=== PATIENT | female | born 1965 | race American Indian/Alaskan Native ===

== ENCOUNTER 2020-08-09 09:50 | Emergency (ER) | payer OTHER, MEDICARE ==
[2020-08-09 10:05] VITALS: BP 137/98
[2020-08-09 10:48] LABS: Basophils % (Auto) 0.6 % (0.0-1.8); Eosinophils % (Auto) 0.7 % (0.0-4.3); Hematocrit 34.9 % (30.3-42.9); Hemoglobin 11.5 gm/dl (10.1-14.3); Lymphocytes # (Auto) 1.5 K/mm3 (1.2-5.4); Lymphocytes % (Auto) 42.3 % (13.4-35.0); Mean Corpuscular HGB Conc 33 % (30-34); Mean Corpuscular Volume 91 fl (79-97); Monocytes # (Auto) 0.3 K/mm3 (0.0-0.8); Monocytes % (Auto) 9.1 % (0.0-7.3); Platelet Count 270 K/mm3 (140-440); Red Blood Count 3.83 M/mm3 (3.65-5.03); Red Cell Distribution Width 13.8 % (13.2-15.2)
[2020-08-09 11:07] LABS: Alanine Aminotransferase 34 units/L (7-56); Albumin 3.2 g/dL (3.9-5); BUN/Creatinine Ratio 21; Blood Urea Nitrogen 17 mg/dL (7-17); Hemolysis Index 9
[2020-08-09 11:25] LABS: Bilirubin,Urine NEG (Negative); Blood,Urine NEG (Negative); Calcium Oxalate Crystals,Urine 3+; Color,Urine Amber (Yellow); Hyaline Casts,Urine 1 /LPF; Mucus,Urine 3+ /HPF
--- NOTE | 2020-08-09 12:25 | Emergency Department Report ---
ED Abdominal Pain HPI - General Chief Complaint: Abdominal Pain Stated Complaint: ABDOMINAL PAIN Time Seen by Provider: 08/09/20 11:42 Source: patient Mode of arrival: Ambulatory Limitations: No Limitations - History of Present Illness Initial Comments: 54-year-old -[place] female presents to the emergency room complaining of abdominal pain and bowel problem x1 week with nausea and vomiting. Patient states that her abdominal pain is now constant and is a 6 out of 10 and she states his chest pain. Patient has a history of gastric bypass November 14, 2019 and has had 2 surgeries for abdominal obstruction November 17 in the of this year. Patient states nothing makes it better and aggravates his movement and feels like or gets this coming inside daily. Patient admits to having loose do frequent bowel movement and acid reflux. She denies any dysuria no blood in her stool or urine. Her surgery was done by Dr. Sunny Mccarthy [facility]. Her primary care provider is Dr. Tye Stephen. She has an allergy to penicillin she is able to take ibuprofen but she was taking it so much that they warn her about possible kidney. MD Complaint: abdominal pain Onset/Timin -: week(s) Location: diffuse Severity scale (0 -10): 9 - Related Data Home Medications Medication Instructions Recorded Confirmed Last Taken Reflux Medication 01/03/15 01/03/15 Unknown Previous Rx's Medication Instructions Recorded Last Taken Type Acetaminophen/Codeine 1 tab PO Q6H PRN #12 tab 01/03/15 Unknown Rx [Acetaminophen-Codeine #3 TAB] Cyclobenzaprine [Flexeril 10mg] 10 mg PO Q8H PRN #15 tablet 01/03/15 Unknown Rx Allergies Allergy/AdvReac Type Severity Reaction Status Date / Time amoxicillin Allergy Rash Verified 01/03/15 08:52 ibuprofen AdvReac "AFFECTS Verified 01/03/15 08:53 KIDNEYS" ED Review of Systems ROS: Stated complaint: ABDOMINAL PAIN Other details as noted in HPI ED Past Medical Hx - Past Medical History Previous Medical History?: Yes Hx GERD: Yes - Surgical History Past Surgical History?: Yes Additional Surgical History: LEFT KNEE AND ANKLE SURGERY. GASTRIC BYPASS NOV 2019 - Social History Smoking Status: Never Smoker Substance Use Type: None - Medications Home Medications: Home Medications Medication Instructions Recorded Confirmed Last Taken Type Acetaminophen/Codeine 1 tab PO Q6H PRN #12 tab 01/03/15 Unknown Rx [Acetaminophen-Codeine #3 TAB] Cyclobenzaprine [Flexeril 10mg] 10 mg PO Q8H PRN #15 tablet 01/03/15 Unknown Rx Reflux Medication 01/03/15 01/03/15 Unknown History ED Physical Exam - General Limitations: No Limitations General appearance: alert, in distress - Head Head exam: Present: atraumatic, normocephalic - Eye Eye exam: Present: normal appearance - ENT ENT exam: Present: mucous membranes moist - Neck Neck exam: Present: normal inspection, full ROM - Respiratory Respiratory exam: Present: normal lung sounds bilaterally. Absent: respiratory distress - Cardiovascular Cardiovascular Exam: Present: tachycardia ED Course Vital Signs 08/09/20 10:01 Temperature 98.1 F Pulse Rate 129 H Respiratory 17 Rate Blood Pressure 137/98 O2 Sat by Pulse 100 Oximetry ED Medical Decision Making - Lab Data Result diagrams: 08/09/20 10:12 08/09/20 10:12 - Medical Decision Making 54-year-old -[place] female presents to the emergency room complaining of abdominal pain and bowel problem x1 week with nausea and vomiting. Patient states that her abdominal pain is now constant and is a 6 out of 10 and she states his chest pain. Patient has a history of gastric bypass November 14, 2019 and has had 2 surgeries for abdominal obstruction November 17 in the of this year. Patient states nothing makes it better and aggravates his movement and feels like or gets this coming inside daily. Patient admits to having loose do frequent bowel movement and acid reflux. She denies any dysuria no blood in her stool or urine. Her surgery was done by Dr. Sunny Mccarthy [facility]. Her primary care provider is Dr. Tye Stephen. She has an allergy to penicillin she is able to take ibuprofen but she was taking it so much that they warn her about possible kidney. Critical care attestation.: If time is entered above; I have spent that time in minutes in the direct care of this critically ill patient, excluding procedure time. ED Disposition Clinical Impression: Nausea Abdominal pain Qualifiers: Abdominal location: generalized Qualified Code(s): R10.84 - Generalized abdominal pain Disposition: DC-01 TO HOME OR SELFCARE Is pt being admited?: No Does the pt Need Aspirin: No Condition: Stable Instructions: Abdominal Pain (ED) Additional Instructions: CT scan is negative for any acute abnormalities. I do recommend taking leaving an acid such as Tums. Follow-up with your general surgeon. You can take Tylenol extra strength for pain management. Referrals: PHYLLIS FERNANDES [Other] - 3-5 Days Forms: Work/School Release Form(ED)
--- NOTE | 2020-08-09 14:36 | Cat Scan Report ---
CT ABDOMEN AND PELVIS WITH CONTRAST HISTORY: Abdominal pain status post gastric bypass COMPARISON: None. TECHNIQUE: Axial CT images were obtained through the abdomen and pelvis after 100 cc of Omnipaque 300 intravenously. Sagittal and coronal reformatted images. All CT scans at this location are performed using CT dose reduction for ALARA by means of automated exposure control. FINDINGS: CT ABDOMEN: Lung Bases: Clear. Liver: Mild hepatic steatosis. No focal liver lesion. Biliary: No significant abnormality. Spleen: No significant abnormality. Unenlarged. Pancreas: No significant abnormality. Adrenals: No significant abnormality. Kidneys: Normal-appearing bilateral kidneys and ureters are identified. There is suggestion of a 2 cm lesion adjacent to the superior left kidney. A dilated tubular extends from this lesion into the pel vis in the vicinity of the vaginal cuff which resembles a dilated ureter. 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 Vasculature: No significant abnormality. Bowel/Peritoneum: Recent gastric bypass surgery changes appear intact. There is no evidence for free air, free fluid or postoperative abscess. No bowel obstruction. CT PELVIS: : The uterus, adnexa and bladder are unremarkable. Osseous Structures: Mild lumbar spondylosis. Additional Findings: None IMPRESSION: No acute abdominal process is appreciated. Hepatic steatosis. Slightly abnormal left retroperitoneum as described. This probably represents a congenital finding. P lease correlate with the patient's history of previous exams if possible. Signer Name: Fabio Winter Jr, MD Signed: 08/09/2020 2:31 PM Workstation Name: [id number]
[2020-08-09] MEDS ORDERED: SODIUM CHLORIDE 0.9% 1000 ML 1,000 ML IV ONE (16:00)
== END 2020-08-09 18:30 | disposition home or self-care (01) ==
LOC: ED 09:50
DX: R10.84 Generalized abdominal pain (principal); R11.2 Nausea with vomiting, unspecified
CPT/HCPCS: 36415; 74177; 80053; 81001; 85025; 96360; 96361; 99284; J7030; Q9967

== ENCOUNTER 2021-03-02 10:28 | Emergency (ER) | payer OTHER, MEDICARE ==
[2021-03-02 10:47] VITALS: BP 112/80
--- NOTE | 2021-03-02 11:46 | Emergency Department Report ---
ED ENT HPI - General Chief complaint: Sore Throat Stated complaint: SORE THROAT Time Seen by Provider: 03/02/21 10:44 Source: patient Mode of arrival: Ambulatory Limitations: No Limitations - History of Present Illness Initial comments: This is a 55-year-old female nontoxic, well nourished in appearance, no acute signs of distress presents to the ED with c/o of sore throat x 1 week. Patient stated that it started after taking famotide for GERD. Patient denies any fever, chills, headache, stiff neck, nausea, vomiting, chest pain, shortness of breath, numbness or tingling. Patient denies any drooling or hoarseness. Patient stated allergies to ibuprofen, oxacillin latex. MD complaint: sore throat -: week(s) Location: throat Severity: mild Severity scale (0 -10): 8 Quality: aching Consistency: constant Improves with: none Worsens with: none Associated Symptoms: sore throat. denies: fever, cough, gum swelling, toothache, pain with swallowing, tinnitus, hearing loss, discharge from ear, rhinorrhea - Related Data Home Medications Medication Instructions Recorded Confirmed Last Taken Reflux Medication 01/03/15 01/03/15 Unknown Previous Rx's Medication Instructions Recorded Last Taken Type Acetaminophen/Codeine 1 tab PO Q6H PRN #12 tab 01/03/15 Unknown Rx [Acetaminophen-Codeine #3 TAB] Cyclobenzaprine [Flexeril 10mg] 10 mg PO Q8H PRN #15 tablet 01/03/15 Unknown Rx Allergies Allergy/AdvReac Type Severity Reaction Status Date / Time amoxicillin Allergy Rash Verified 03/02/21 10:44 ibuprofen AdvReac "AFFECTS Verified 03/02/21 10:44 KIDNEYS" latex AdvReac Rash Verified 03/02/21 10:44 ED Dental HPI - General Chief complaint: Sore Throat Stated complaint: SORE THROAT Time Seen by Provider: 03/02/21 10:44 Source: patient Mode of arrival: Ambulatory Limitations: No Limitations - Related Data Home Medications Medication Instructions Recorded Confirmed Last Taken Reflux Medication 01/03/15 01/03/15 Unknown Previous Rx's Medication Instructions Recorded Last Taken Type Acetaminophen/Codeine 1 tab PO Q6H PRN #12 tab 01/03/15 Unknown Rx [Acetaminophen-Codeine #3 TAB] Cyclobenzaprine [Flexeril 10mg] 10 mg PO Q8H PRN #15 tablet 01/03/15 Unknown Rx Allergies Allergy/AdvReac Type Severity Reaction Status Date / Time amoxicillin Allergy Rash Verified 03/02/21 10:44 ibuprofen AdvReac "AFFECTS Verified 03/02/21 10:44 KIDNEYS" latex AdvReac Rash Verified 03/02/21 10:44 ED Review of Systems ROS: Stated complaint: SORE THROAT Other details as noted in HPI Comment: All other systems reviewed and negative Constitutional: denies: chills, fever Eyes: denies: eye pain, eye discharge, vision change ENT: throat pain. denies: ear pain, dental pain, hearing loss, congestion Respiratory: denies: cough, shortness of breath, wheezing Cardiovascular: denies: chest pain, palpitations Endocrine: no symptoms reported Gastrointestinal: denies: abdominal pain, nausea, diarrhea Genitourinary: denies: urgency, dysuria, discharge Musculoskeletal: denies: back pain, joint swelling, arthralgia Skin: denies: rash, lesions Neurological: denies: headache, weakness, paresthesias Psychiatric: denies: anxiety, depression Hematological/Lymphatic: denies: easy bleeding, easy bruising ED Past Medical Hx - Past Medical History Hx GERD: Yes - Surgical History Additional Surgical History: LEFT KNEE AND ANKLE SURGERY. GASTRIC BYPASS NOV 2019 - Social History Smoking Status: Never Smoker Substance Use Type: None - Medications Home Medications: Home Medications Medication Instructions Recorded Confirmed Last Taken Type Acetaminophen/Codeine 1 tab PO Q6H PRN #12 tab 01/03/15 Unknown Rx [Acetaminophen-Codeine #3 TAB] Cyclobenzaprine [Flexeril 10mg] 10 mg PO Q8H PRN #15 tablet 01/03/15 Unknown Rx Reflux Medication 01/03/15 01/03/15 Unknown History ED Physical Exam - General Limitations: No Limitations General appearance: alert, in no apparent distress - Head Head exam: Present: atraumatic, normocephalic - Eye Eye exam: Present: normal appearance - Expanded ENT Exam Expanded Ear exam: Present: normal external inspection Mouth exam: Present: normal external inspection, tongue normal. Absent: drooling, trismus, muffled voice Teeth exam: Present: normal inspection Throat exam: Positive: normal inspection, other (Uvula midline. No swelling.). Negative: tonsillar erythema, tonsillomegaly, tonsillar exudate, R peritonsillar mass, L peritonsillar mass - Neck Neck exam: Present: normal inspection, full ROM. Absent: tenderness, meningismus, lymphadenopathy - Respiratory Respiratory exam: Absent: respiratory distress - Cardiovascular Cardiovascular Exam: Present: regular rate - Extremities Exam Extremities exam: Present: normal inspection - Back Exam Back exam: Present: normal inspection - Neurological Exam Neurological exam: Present: alert, oriented X3, normal gait - Psychiatric Psychiatric exam: Present: normal affect, normal mood - Skin Skin exam: Present: warm, dry, intact, normal color. Absent: rash ED Course Vital Signs 03/02/21 10:43 Temperature 98.8 F Pulse Rate 78 Respiratory 18 Rate Blood Pressure 112/80 O2 Sat by Pulse 98 Oximetry - Reevaluation(s) Reevaluation #1: 03/02/21 11:45 Patient is speaking in full sentences with no signs of distress noted. ED Medical Decision Making - Lab Data Lab Results 03/02/21 Range/Units Unknown Group A Strep Rapid Negative (Negative) - Medical Decision Making Patient stable. Patient was examined by me. Presents stable. Negative strep test. Patient was instructed to follow-up with a primary care doctor in 3-5 days or if symptoms worsen and continue return to emergency room as soon as possible. At time of discharge, the patient does not seem toxic or ill in appearance. No acute signs of distress noted. Patient agrees to discharge treatment plan of care. No further questions noted by the patient. Critical care attestation.: If time is entered above; I have spent that time in minutes in the direct care of this critically ill patient, excluding procedure time. ED Disposition Clinical Impression: Sore throat Disposition: - TO HOME OR SELFCARE Is pt being admited?: No Does the pt Need Aspirin: No Condition: Stable Additional Instructions: Follow-up with a primary care doctor in 3-5 days or if symptoms worsen and continue return to emergency room as soon as possible. Referrals: PRIMARY CAREMD [Referring] - 3-5 Days KALE PACK MD [Staff Physician] - 3-5 Days Time of Disposition: 11:45
== END 2021-03-02 12:06 | disposition home or self-care (01) ==
LOC: ED 10:28
DX: J02.9 Acute pharyngitis, unspecified (principal); K21.9 Gastro-esophageal reflux disease without esophagitis; Z98.890 Other specified postprocedural states; Z79.899 Other long term (current) drug therapy; Z88.1 Allergy status to other antibiotic agents; Z91.040 Latex allergy status; Z88.8 Allergy status to other drugs, medicaments and biological substances
CPT/HCPCS: 87116; 87430